=== PATIENT | female | born 1990 | race Hispanic/Latino ===

== ENCOUNTER 2017-03-17 20:50 | Emergency (ER) | payer OTHER ==
[2017-03-17 21:12] VITALS: BP 129/87; PULSE 92; RESP 18; TEMP 99.2; O2SAT 97
[2017-03-17] MEDS ORDERED: Sodium Chloride 0.9% 1,000 ML IV STA (22:12)
--- NOTE | 2017-03-17 22:20 | ED PDOC ---
HPI:Nausea, Vomiting, Diarrhea Time Seen by Provider: 03/17/17 21:38 Chief Complaint (Nursing): GI Problem Chief Complaint (Provider): Vomiting History Per: Patient History/Exam Limitations: no limitations Onset/Duration Of Symptoms: Days (few weeks, worsened since 1 week) Associated Symptoms: denies: Urinary Symptoms Exacerbating Factors: Food Additional Complaint(s): Patient is a 27 y/o female who is 9 weeks with her second , who presents to the ED complaining of worsened vomiting for 1 week. Patient notes she had an for her first . She reports that she cannot retain fluids and denies any urinary symptoms. Patient mentions that she has not been seeing a primary care physician and has been visiting a clinic in [place], but adds that she is scheduled for her first appointment with Dr. Russo in 2 days. PMD:Jourdan Russo : 2 Para: 0 Past Medical History Reviewed: Historical Data, Nursing Documentation, Vital Signs Vital Signs: Last Vital Signs Temp 99.2 F 03/17/17 21:09 Pulse 92 H 03/17/17 21:09 Resp 18 03/17/17 21:09 BP 129/87 03/17/17 21:09 Pulse Ox 97 03/17/17 21:09 - Medical History PMH: No Chronic Diseases - Family History Family History: States: Unknown Family Hx - Allergies Allergies/Adverse Reactions: Allergies Allergy/AdvReac Type Severity Reaction Status Date / Time No Known Allergies Allergy Verified 03/17/17 21:09 Review of Systems ROS Statement: Except As Marked, All Systems Reviewed And Found Negative Gastrointestinal: Positive for: Vomiting Genitourinary Female: Negative for: Dysuria, Hematuria Physical Exam - Reviewed Nursing Documentation Reviewed: Yes Vital Signs Reviewed: Yes - Physical Exam Appears: Positive for: No Acute Distress (Visibily dehydrated) Head Exam: Positive for: ATRAUMATIC, NORMOCEPHALIC Skin: Positive for: Normal Color, Warm, Dry Eye Exam: Positive for: Normal appearance, EOMI, PERRL ENT: Positive for: Other (Dry mucous membranes) Neck: Positive for: Normal, Painless ROM, Supple Cardiovascular/Chest: Positive for: Regular Rate, Rhythm. Negative for: Murmur Respiratory: Positive for: Normal Breath Sounds. Negative for: Respiratory Distress Gastrointestinal/Abdominal: Positive for: Normal Exam, Soft. Negative for: Tenderness Back: Positive for: Normal Inspection. Negative for: L CVA Tenderness, R CVA Tenderness, Vertebral Tenderness Extremity: Positive for: Normal ROM. Negative for: Pedal Edema, Deformity Neurologic/Psych: Positive for: Alert, Oriented (x3). Negative for: Motor/ Sensory Deficits - Laboratory Results Result Diagrams: 03/17/17 23:13 03/17/17 23:13 - ECG O2 Sat by Pulse Oximetry: 97 (RA) Pulse Ox Interpretation: Normal Medical Decision Making Medical Decision Making: Time: 22:12 Initial Impression: hyperemesis gravidarum, rule out electrolyte abnormality Initial Plan: --Labs --Sodium Chloride 0.9% IV 999 mls/hr --Pepcid 20 mg IVP --Zofran Inj 4 mg IV Time: 1:18 --Patient feels better, and tolerated medications --Patient is stable for discharged, and was advised to follow up with OB if symptoms persist or worsen. Scribe Attestation: Documented by Billie Snider and Terrence Huntley, acting as a scribe for Carlos A Richard MD Provider Scribe Attestation: All medical record entries made by the Scribe were at my direction and personally dictated by me. I have reviewed the chart and agree that the record accurately reflects my personal performance of the history, physical exam, medical decision making, and the department course for this patient. I have also personally directed, reviewed, and agree with the discharge instructions and disposition. Disposition - Patient ED Disposition Is Patient to be Admitted: No - Disposition Disposition: Routine/Home Condition: STABLE Forms: [employer] ([place])
[2017-03-17 23:16] LABS: BASO # 0.1 K/uL (0.0-0.2); BASO % 0.6 % (0.0-2.0); EOS # 0.1 K/uL (0.0-0.7); EOS % 0.7 % (0.0-4.0); HEMATOCRIT 36.5 % (34.0-47.0); LYMPH # 2.9 K/uL (1.0-4.3); LYMPH % 20.5 % (20.0-40.0); MEAN CELL VOLUME 91.6 fl (81.0-99.0); MEAN CORPUSCULAR HEMOGLOBIN 31.5 pg (27.0-31.0); MEAN CORPUSCULAR HGB CONC 34.4 g/dL (33.0-37.0); MEAN PLATELET VOLUME 8.1 fl (7.2-11.7); MONO # 0.8 K/uL (0.0-0.8); MONO % 5.6 % (0.0-10.0); NEUT # 10.1 K/uL (1.8-7.0); NEUT % 72.6 % (50.0-75.0); RED CELL DISTRIBUTION WIDTH 13.2 % (11.5-14.5); WHITE BLOOD COUNT 13.9 K/uL (4.8-10.8)
[2017-03-17 23:26] LABS: ALB/GLOB RATIO 1.7 (1.0-2.1); ALKALINE PHOSPHATASE 33 U/L (38-126); ALT/SGPT 24 U/L (9-52); AST/SGOT 21 U/L (14-36); BILIRUBIN,TOTAL 0.7 mg/dl (0.2-1.3); BLOOD UREA NITROGEN 8 mg/dl (7-17); CALCIUM 9.7 mg/dL (8.4-10.2); CARBON DIOXIDE 21 mmol/L (22-30); CHLORIDE 102 mmol/L (98-107); GFR AFRICAN-AMERICAN > 60; GLUCOSE,RANDOM 89 mg/dL (65-105); POTASSIUM 3.5 MMOL/L (3.6-5.0); SODIUM 137 mmol/l (132-148); TOTAL PROTEIN 7.8 G/DL (6.3-8.2)
== END 2017-03-18 01:33 | disposition home or self-care (01) ==
LOC: H.ER 20:50
DX: O21.9 Vomiting of pregnancy, unspecified (principal)
CPT/HCPCS: 80053; 84702; 85025; 96374; 99283; J2405; J7040

== ENCOUNTER 2017-08-18 19:32 | Emergency (ER) | payer OTHER ==
[2017-08-18 20:38] VITALS: BMI 23.2
[2017-08-18] MEDS: Lactated Ringer's 1,000 ML IV SCH ×2 (21:30→22:33)
[2017-08-18 22:28] LABS: SQUAMOUS EPITHIAL 6 /hpf (0-5); URINE BACTERIA RARE (<OCC); URINE BILIRUBIN NEGATIVE (NEGATIVE); URINE BLOOD NEGATIVE (NEGATIVE); URINE CLARITY CLOUDY (Clear); URINE COLOR YELLOW (YELLOW); URINE GLUCOSE (UA) NEG (Normal); URINE LEUKOCYTE ESTERASE NEG Leu/uL (Negative); URINE PROTEIN NEGATIVE (NEGATIVE); URINE UROBILINOGEN 0.2-1.0 mg/dL (0.2-1.0)
[2017-08-18 22:56] LABS: SPECIMEN COMMENT CLOUDY
--- NOTE | 2017-08-18 23:18 | OBHP ---
Datetime: 08/18/2017 23:17 IP Adm Impression: Term, intrauterine ; No Active Labor; Intact Membranes IP Admit Plan: Observation/Evaluation; Discharge home EGA AdmitDate IP: 31.4 Vital Signs Provider: Reviewed; Within Normal Limits IP Chief Complaint: Uterine contractions Datetime: 08/18/2017 21:04 Admit Comment, IP Provider: CC: CTX HPI: 27 YO @ 31.4wks IUP presents to [facility] for abdominal pain and ctx. Pt states that she has had abdominal pain since 3AM, and pain has remained consistant since onset. Pt was constipated, but a fter she had BM her pain persisted, irregular every 20-40mins. Good FM, no VB, and LOF. Denies dysuri a, urinary frequency. MD: Dr. Russo PMH: denies SurgH: denies SH: denies smoking, ETOH and illicit drugs FH: DM-maternal Allergies: NKDA Meds: PNV, and colace PE Gen: NAD Cardio: S1S2 no additional heart sounds Resp: vesicular breathing b/l Abdomen: gravid, mild tenderness in LLQ, BS+. Rectal exam-good tone, no bleeding, no stool in the vault Neuro: AAO x 3 Extremities: No edema, NT Specu: cervix closed and thick, no discharge noted, no VB FM: 150, catagory I. ctx Q5-6mins A/P: 27 YO @ 31.4wks IUP is evaluated for labor. -FFN -UA -IVF -continue FM Case discussed with attending Dr. Loreto Irene, [facility]...pt seen at 23:00pm. Agree with note PGY1; FFN neg/UA neg - spoke with dr Russo...will give Zofran for nausea - MAHNDO Pelvic Type - PN: Adequate Extremities - PN: Normal Abdomen - PN: Normal Back - PN: Normal Breast - PN: Not Done Lungs - PN: Normal Heart - PN: Normal Thyroid - PN: Not Done Neurologic - PN: Normal HEENT - PN: Normal General - PN: Normal FHR - Baseline A Provider: 150 Membranes, Provider: Intact Pool Provider: Negative NICHD Variability Prov Fetus A: Moderate 6-25bpm NICHD Accel Fetus A IP Provider: 15X15 FHR Category Provider Fetus A: Category I Dilatation, Provider: 0 Genitourinary Exam: Normal DTRs - PN: Not Done
[2017-08-19 07:57] VITALS: BP 94/56; PULSE 85
--- NOTE | 2017-08-19 08:34 | OBDCSUM ---
Datetime: 08/19/2017 00:09 Discharged to, Provider: Home Follow up at, Provider: Disch Instr Activity: Normal activity Disch Instr Diet: Regular Discharge Time: 08/19/2017 00:10 Follow up in weeks, Provider: 08/24/2017 Disch Referrals: None Disch Activity Restrictions: No lifting Discharge Diagnosis Prov Other: threaten labor
== END 2017-08-19 00:15 | disposition home or self-care (01) ==
LOC: H.EROB2 19:32
DX: O26.93 Pregnancy related conditions, unspecified, third trimester (principal); R10.2 Pelvic and perineal pain; Z3A.31 31 weeks gestation of pregnancy
CPT/HCPCS: 81003; 82731; 96360; 96361; 99283; J2405; J7120

== ENCOUNTER 2017-09-30 16:49 | Inpatient (IN) | payer OTHER ==
[2017-09-30 17:06] VITALS: BMI 23.6
[2017-09-30] MEDS: Lactated Ringer's 1,000 ML IV SCH ×3 (18:00→23:30)
[2017-09-30 19:04] LABS: BASO % 0.1 % (0.0-2.0); EOS # 0.1 K/uL (0.0-0.7); EOS % 0.8 % (0.0-4.0); HEMOGLOBIN 10.9 g/dL (12.0-16.0); LYMPH # 2.2 K/uL (1.0-4.3); LYMPH % 15.1 % (20.0-40.0); MEAN CELL VOLUME 92.8 fl (81.0-99.0); MEAN CORPUSCULAR HEMOGLOBIN 31.9 pg (27.0-31.0); MEAN CORPUSCULAR HGB CONC 34.4 g/dL (33.0-37.0); MEAN PLATELET VOLUME 8.7 fl (7.2-11.7); MONO # 0.7 K/uL (0.0-0.8); MONO % 4.6 % (0.0-10.0); NEUT # 11.6 K/uL (1.8-7.0); NEUT % 79.4 % (50.0-75.0); RBC 3.41 Mil/uL (3.80-5.20); WHITE BLOOD COUNT 14.6 K/uL (4.8-10.8)
[2017-09-30 19:09] VITALS: PULSE 76; O2SAT 100
[2017-09-30] MEDS ORDERED: Fentanyl/Bupivacaine HCl 250 ML EPI ONE (23:12)
[2017-09-30] MEDS ORDERED: Bupivacaine HCl 0.25% PF (10 ml) Inj ONE (23:12)
[2017-10-01] MEDS: Lactated Ringer's 1,000 ML IV SCH (03:30)
--- NOTE | 2017-10-01 06:17 | OBADHP ---
Datetime: 10/01/2017 06:04 Admit Comment, IP Provider: pt came in last night with c/o SROM since early yesterday upon arrival g ross pooling of fluid noted by information technology coordinator attending and cx 1cm Pt admitted with irregular UC and cervidi l was ordered pt received epidural and cervix opened to 4cm so cervidil was held Now UC spacing out a nd cx 5cm and will order augumentation with pitocin Extremities - PN: Normal Abdomen - PN: Abnormal Back - PN: Normal Breast - PN: Normal Lungs - PN: Normal Thyroid - PN: Normal Neurologic - PN: Normal HEENT - PN: Normal General - PN: Normal Presentation-Admit: cephalic FHR - Baseline A Provider: 140-150 Amniotic Fluid Color, Provider: Meconium, Particulate Membranes, Provider: Ruptured Contraction Comments Provider: 4-5 min Comments, ACOG Physical Exam: Abd soft NT gravid, ext gen wnl gross pooling in vagina Gestation - Est Wks by US: 37+ Pool Provider: Positive IP Hx Assessment: The History has been Reviewed and is Current Vital Signs Provider: Reviewed IP Chief Complaint: Uterine contractions NICHD Variability Prov Fetus A: Moderate 6-25bpm NICHD Accel Fetus A IP Provider: 10X10 NICHD Decel Fetus A IP Provider: None Dilatation, Provider: 5 Effacement, Provider: 80 Station, Provider: 0 Genitourinary Exam: Normal DTRs - PN: Normal EGA AdmitDate IP: 37.6 IP Adm Impression: Term, intrauterine ; Ruptured Membranes IP Admit Plan: Admit to unit; Initiate labor protocol Datetime: 09/30/2017 17:55 Nitrazine Provider: Positive Datetime: 09/30/2017 17:30 FHR Category Provider Fetus A: Category I Datetime: 08/18/2017 21:04 Pelvic Type - PN: Adequate Heart - PN: Normal
[2017-10-01] MEDS ORDERED: Lidocaine 2% Inj (20ml) ONE (10:04)
--- NOTE | 2017-10-01 13:44 | OBDS ---
MATERNAL INFORMATION Estimated Blood Loss (ml): 250 Maternal Complications: Premature Rupture of Membranes Provider Comments: Delivered a living baby boy using a vacum x 2 tries for maternal exaustion, baby appears AGA, cried spontanously Peds in attendence 9/9, AF clear Cord with 2 vessels Placenta c omplete and intact Episiotomy done and repaired as above. Tolerated procedure well, uterus contracte d well No cervical or vaginal tears noted Rectal done no defects LABOR SUMMARY EDC: 10/16/2017 00:00 No. Babies in Womb: 1 LABOR INFORMATION Reason for Induction: Not Applicable Group B Beta Strep: Negative Steroids Given: None Reason Steroids Not Administered: Not Applicable MEMBRANES Membranes Rupture Method: Spontaneous Rupture of Membranes: 09/30/2017 16:30 Amniotic Fluid Color: Clear Amniotic Fluid Amount: Small Amniotic Fluid Odor: Normal VAGINAL DELIVERY Episiotomy: Median Laceration Extension: N/A Laceration Type: None Laceration Repair: Not Applicable Laceration Repair Note: midline 1-2 dg episiotomy done and repaired using 2-0 chromic interrupted x3 for deeper tissues and continously for vagina and perineum No complications Sponge Count Correct: Yes Sharps Count Correct: Yes Count Comment: count correct and verified by RN CSECTION DELIVERY Primary Indication: N/A Secondary Indication: N/A CSection Incision: N/A Uterine Closure: N/A BABY A INFORMATION Forceps: N/A Vacuum Extraction: Successful Shoulder Dystocia : No PRESENTATION/POSITION BABY A Presentation: Cephalic Cephalic Presentation: Vertex Vertex Position: Left Occipital Anterior IDENTIFICATION/MEDS BABY A ID Band Number: [id number]
[2017-10-01] MEDS ORDERED: Benzocaine/Menthol SPRAY TOP PRN ×2 (13:45→17:36)
[2017-10-01] MEDS ORDERED: Oxycodone/Acetaminophen 5/325 mg Tab PO PRN ×2 (13:45→17:36)
[2017-10-02 06:43] LABS: HEMOGLOBIN 9.7 g/dL (12.0-16.0); MEAN CELL VOLUME 94.4 fl (81.0-99.0); MEAN CORPUSCULAR HGB CONC 33.9 g/dL (33.0-37.0); RBC 3.05 Mil/uL (3.80-5.20); RED CELL DISTRIBUTION WIDTH 13.4 % (11.5-14.5); WHITE BLOOD COUNT 20.3 K/uL (4.8-10.8)
[2017-10-02] MEDS ORDERED: Hydrocortisone-Pramoxine 1%-1% Foam(10 gm) TOP PRN (08:36)
--- NOTE | 2017-10-02 11:29 | OBPPN ---
Datetime: 10/02/2017 11:25 PP Pain Prov: Within normal limits PP Pain Prov comment: No SOB chest or leg pains PP Nausea Prov: Denies PP Flatus Prov: Yes PP Nausea Prov comment: voiding well PP Breasts Prov: Normal PP Lungs Prov: Normal PP Abdomen/Uterus Prov: Abnormal PP Lochia Prov: Normal PP Vulva/Perineum Prov: Abnormal PP CVA Tenderness Prov: Normal PP Extremities Prov: Normal PP C/S Incision Prov: Not Applicable PP Progress Prov: Normal PP Comments Phys Exam Prov: breast NE, NT; Abd soft ND fundus firm below umb Perineum repaired Ext no calf tenderness PP Impression Prov: Normal progression PP Plan Prov: Continue present management PP Impression Other Prov: anemia not symptomatic PP Progress Note Prov: start po iron and continue PP care OOB and ambulation IP PP Procedures: None
--- NOTE | 2017-10-03 07:14 | OBPPN ---
Datetime: 10/03/2017 07:09 PP Pain Prov: Within normal limits PP Nausea Prov: Denies PP Flatus Prov: Yes PP BM Prov: Yes PP Breasts Prov: Normal PP Heart Prov: Normal PP Lungs Prov: Normal PP Abdomen/Uterus Prov: Normal PP Lochia Prov: Normal PP Vulva/Perineum Prov: Normal PP CVA Tenderness Prov: Normal PP Extremities Prov: Normal PP C/S Incision Prov: Not Applicable PP Impression Prov: Normal progression PP Plan Prov: Discharge PP Progress Note Prov: OB Hospitalist on-call - asked to see pt by Dr Russo She feels fine. Waiting to see social service A: S/P day 2 Anemia - asymptomatic PLAN: discharge after seen by social service (+effie) Follow up Dr Russo 6w
[2017-10-03 18:16] VITALS: BP 107/76; RESP 20; TEMP 97.5
== END 2017-10-03 13:15 | disposition home or self-care (01) | DRG 372 ==
LOC: H.EROB2 16:49 → H.L&D 17:49 → H.OB/GYN 10-01 17:27
PROVIDERS: ADMIT Specialist; ATTEND Specialist
PROC: 4A1HXCZ Monitoring of Products of Conception, Cardiac Rate, External Approach (ICD-10-PCS; 2017-09-30)
PROC: 10D07Z6 Extraction of Products of Conception, Vacuum, Via Natural or Artificial Opening (ICD-10-PCS; principal; 2017-10-01)
DX: O42.90 Premature rupture of membranes, unspecified as to length of time between rupture and onset of labor, unspecified weeks of gestation (principal); O99.02 Anemia complicating childbirth; O75.81 Maternal exhaustion complicating labor and delivery; O77.0 Labor and delivery complicated by meconium in amniotic fluid; Z37.0 Single live birth; O98.52 Other viral diseases complicating childbirth; Z3A.38 38 weeks gestation of pregnancy